=== PATIENT | female | born 1990 | race Hispanic/Latino ===

== ENCOUNTER 2017-12-02 10:24 | Emergency (ER) | payer MEDICAID ==
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
== END 2017-12-02 12:56 | disposition home or self-care (01) ==
LOC: ERS 10:24
DX: M25.421 Effusion, right elbow (principal); F10.10 Alcohol abuse, uncomplicated; Y08.89XA Assault by other specified means, initial encounter